=== PATIENT | female | born 1955 | race Caucasian/White ===

== ENCOUNTER → 2019-01-06 14:50 | Outpatient (CLI) | payer OTHER, SELFPAY ==
[2018-12-19 10:46] VITALS: BMI 42.3
--- NOTE | 2019-01-06 14:52 | ECHOCS_ITS ---
Reason For Study: CAD Procedure This was a 2D Doppler, Color Flow transthoracic echocardiogram. The study was technically difficult. Contrast injection was performed. Exam performed in department. Left Ventricle Normal LV size. Left ventricular systolic function is normal. The estimated ejection fraction is 65 %. Diastolic function is indeterminate. No regional wall motion abnormalities noted. Right Ventricle Normal RV size. Normal systolic function. Atria The left atrium is mildly enlarged. Normal right atrium. No doppler evidence for ASD. Mitral Valve There is no mitral annular calcification. Normal mitral valve. Trivial mitral valve insufficiency. Tricuspid Valve Normal tricuspid valve. Trivial tricuspid valve insufficiency. Unable to estimate RV systolic pressure/pulmonary artery pressure due to technically difficult study. Aortic Valve Based uopn the 2D echocardiographic images obtained a bicuspid aortic valve cannot be excluded. Pulmonic Valve The pulmonic valve is not well visualized. Mild (1+) pulmonic valve insufficiency. Great Vessels Mildly dilated aortic root. Pericardium/Pleural No pericardial effusion. Medication 22 gauge I.V. with prn adaptor inserted into right arm. Diluted definity 2ml given slow IV push to enhance endocardial definition. note: Following echo pt sat up and experienced vertigo type symptoms , which she has previously been diagnosed with. Dizziness and nausea did not resolve, therefore pt was taken to ED to be evaluated. This does not appear to be a reaction to Definity. MMode/2D Measurements & Calculations LVIDd: 4.3 cm IVSd: 0.96 cm Ao root diam: 4.0 cm LVIDs: 3.1 cm LVPWd: 0.98 cm FS: 28.7 % LAV(MOD-bp): 49.2 ml LVAd ap4: 35.4 cm2 SV(MOD-sp4): 89.6 ml LAV(MOD-bp) Indexed: 20.6 ml/m2 EDV(MOD-sp4): 130.4 ml LAV(MOD-sp2): 48.7 ml EDV(sp4-el): 138.9 ml LAV(MOD-sp4): 48.5 ml LVAs ap4: 17.2 cm2 ESV(MOD-sp4): 40.8 ml ESV(sp4-el): 43.3 ml EF(MOD-sp4): 68.7 % EF(sp4-el): 68.9 % SV(sp4-el): 95.7 ml LA A4 area: 18.5 cm2 LA dimension(2D): 3.9 cm RA A4 area: 12.7 cm2 Time Measurements MV dec time: 0.35 sec Doppler Measurements & Calculations MV E max yang: 60.9 cm/sec Lat Peak E' Yang: 9.3 cm/sec Med Peak E' Yang: 5.4 cm/sec MV A max yang: 108.8 cm/sec E/E' lat: 6.6 E/E' med: 11.4 MV E/A: 0.56 Ao V2 max: 133.0 cm/sec LV V1 max: 116.3 cm/sec PA V2 max: 103.8 cm/sec Ao max P.1 mmHg LV V1 max P.4 mmHg PI end-d yang: 137.9 cm/sec Interpretation Summary The study was technically difficult. Contrast injection was performed. Left ventricular systolic function is normal. The estimated ejection fraction is 65 %. The left atrium is mildly enlarged. Trivial mitral valve insufficiency. Trivial tricuspid valve insufficiency. Mild (1+) pulmonic valve insufficiency. Mildly dilated aortic root. Unable to estimate RV systolic pressure/pulmonary artery pressure due to technically difficult study. Diastolic function is indeterminate. Based uopn the 2D echocardiographic images obtained a bicuspid aortic valve cannot be excluded. Ordering Physician: Esau Cordoba Referring Physician: AMBER SOLO Performed By: Nithya Mazariegos, CAMELIA, RVT
== END ==
PROVIDERS: Family Provider Physician Assistant; PCP Physician Assistant; Referring Provider Internal Medicine Cardiovascular Disease; Visit Provider Internal Medicine Cardiovascular Disease
DX: I25.10 Atherosclerotic heart disease of native coronary artery without angina pectoris (principal); R01.1 Cardiac murmur, unspecified
CPT/HCPCS: 93306; Q9957; A4216; C8929

== ENCOUNTER 2019-01-06 17:30 | Emergency (ER) | payer OTHER, SELFPAY ==
[2018-12-19 10:46] VITALS: BMI 42.3
[2019-01-06 17:31] VITALS: BP 158/75; PULSE 68; RESP 16; TEMP 36.4; O2SAT 94; BMI 41.3
[2019-01-06 18:28] VITALS: BP 145/68; PULSE 72; RESP 16; O2SAT 95
--- NOTE | 2019-01-06 18:51 | EKG12_ITS ---
Test Reason : DIZZY Blood Pressure : / mmHG Vent. Rate : 067 BPM Atrial Rate : 067 BPM P-R Int : 148 ms QRS Dur : 080 ms QT Int : 532 ms P-R-T Axes : 029 -26 028 degrees QTc Int : 562 ms Sinus rhythm with marked sinus arrhythmia Nonspecific T wave abnormality Abnormal ECG Confirmed by BHAKTI ARGUETA, JEFFERY ([id number]), sound editor ELKE MAX ([id number]) on 01/09/2019 10:57:31 AM Referred By: Esau Cordoba Confirmed By:JEFFERY YA MD
--- NOTE | 2019-01-06 18:51 | CT_ITS ---
HISTORY: DURING ECHO TODAY AFTER INJECTION PATIENT HAD DIZZINESS AND NAUSEA TECHNIQUE: Multiple axial images were obtained of the brain without intravenous contrast. A radiation dose optimization technique was used for this scan. IV Contrast dosage and agent: None. COMPARISON: None FINDINGS: Normal ventricles. Mild cerebral cortical atrophy. No intracranial mass, hemorrhage, or acute parenchymal abnormality. Posterior fossa structures are unremarkable with the exception of vertebrobasilar atherosclerotic calcifications. Bilateral carotid calcifications, as well. No suspicious extra-axial fluid collection. The mastoids appear clear. As visualized, the paranasal sinuses are clear. CT/Brain/Head without Contrast IMPRESSION: 1. No hemorrhage or acute disease identified. 2. Carotid and vertebrobasilar atherosclerotic calcifications. Comment: If symptoms persist and remain unexplained, further correlation with MRI may be of benefit if the patient is a candidate. Individualized dose optimization techniques were used for this CT. at 1952 Reported and signed by: Tray Chaudhary MD Electronically Signed: Tray Chaudhary, at 19:51 EDT Tel , Service support ,
[2019-01-06] MEDS: LORazepam 2 MG/ML Syringe 1 MG IV (19:12)
[2019-01-06 19:24] LABS: Absolute Neutrophil Count 6.4 X10^3/uL (2.0-7.7); Basophil# 0.02 X10^3/uL; Basophil% 0.2 % (0-1); Eosinophil# 0.16 X10^3/uL; Eosinophils% 1.8 % (0-5); Hematocrit 48.1 % (37-47); Hemoglobin 15.5 g/dl (12.0-15.0); Lymphocyte % 21.5 % (19-41); Mean Corp Hgb Conc 32.2 g/gl (32-36); Mean Corpuscular Hgb 29.6 pg (27.0-32.0); Mean Corpuscular Volume 91.8 fL (81-99); Mean Platelet Vol. 11.5 fl (6.2-12.0); Monocyte# 0.34 X10^3/uL; Monocyte% 3.9 % (0-10); Neutrophil # 6.38 X10^3/uL (2.7-7.7); Neutrophil % 72.3 % (47-70); Platelet Count 146 K/mm3 (150-450); RBC Distribution Width CV 15.1 % (11.6-14.6); RBC Distribution Width SD 50.7 fl (35.1-43.9); Red Blood Count 5.24 M/mm3 (4.2-5.4); White Blood Count 8.8 K/mm3 (4.4-11.0)
[2019-01-06 19:35] LABS: POSITIVE COUNT NO; POSITIVE DIFFERENTIAL NO; POSITIVE MORPHOLOGY NO
[2019-01-06 19:40] LABS: International Normalized Ratio 1.1
[2019-01-06 19:41] LABS: Partial Thromboplast Time 27.9 Seconds (24.1-36.2)
[2019-01-06 19:45] LABS: Anion Gap 9 (5-15); BUN 23 mg/dL (7-18); BUN/Creat Ratio 25.8 RATIO (10-20); Calcium,Total 9.1 mg/dL (8.5-10.1); Chloride 102 mmol/L (98-107); Creatinine, Serum 0.89 mg/dL (0.55-1.02); EST Glomerular Filtration Rate 68 mL/min (>60); Est Glom Filt Rate - Afr Amer 82 mL/min (>60); Estimated Creatinine Clearance 66.74 ml/min; Glucose 175 mg/dL (74-106); Potassium 3.6 mmol/L (3.5-5.1); Sodium Level 137 mmol/L (136-145)
[2019-01-06 20:23] VITALS: BP 156/81; PULSE 72; RESP 16; O2SAT 89
--- NOTE | 2019-01-06 21:15 | ED.VISSUMM ---
- ER Visit Summary Date of Service: 01/06/19 Chief Complaint: Dizziness History of Present Illness: The patient is a 63 F with dizziness that started suddenly after a cardiac echo. The patient sat up and her symptoms started. She feels the room spinning. She is nauseated and vomited twice. No headache. No other neurologic symptoms. No history of stroke. No recent illness or fevers. No head trauma. Physical Examination: Afebrile and vital signs unremarkable. Patient is alert and oriented. Appears uncomfortable. No acute distress. HEENT exam unremarkable. Cranial nerves grossly intact. Normal strength and sensation. Heart regular. Lungs clear. Abdomen soft. Test Results: EKG showed sinus rhythm at a rate of 67. Hemoglobin 15.5 and platelets 146. Glucose 175 and BUN 23. Coags normal. Troponin normal. CT showed no acute findings. Emergency Department Course and Treatment: Patient presents with sudden vertigo. I suspect this is peripheral in etiology. She was treated with Ativan and had resolution of her symptoms. Patient will be discharged home on a course of meclizine and Ativan as needed. Follow-up with her doctor. Treatment Plan: As above Disposition: Discharge Impression: 1. Vertigo This note was generated with [employer] dictation software. It may contain incorrect words, spelling, and punctuation that were not noted in review of the chart prior to signing ED Disposition - Plan for ED Patient: Referrals: Seferino Argueta PA [Primary Care Provider] -
--- NOTE | 2019-01-06 21:17 | ED.DEP ---
ED Disposition - Plan for ED Patient: Instructions: ED Vertigo Unspecified Prescriptions: Lorazepam [Ativan] 1 mg PO TID PRN PRN 3 Days #9 tab PRN Reason: Vertigo Meclizine HCl 25 mg PO TID PRN PRN #20 tab.chew PRN Reason: Vertigo Referrals: Seferino Argueta PA [Primary Care Provider] -
[2019-01-06 21:53] VITALS: BP 131/73; PULSE 76; RESP 22; O2SAT 97
--- NOTE | 2019-01-06 21:54 | ED.RN ---
THIS NURSE REVIEWED D/C INSTRUCTIONS WITH PT AND FAMILY. PT VERBALIZED UNDERSTANDING OF INSTRUCTIONS. IV D/C. IV CATHETER INTACT. PT TOLERATED WELL.
== END 2019-01-06 21:55 | disposition home or self-care (01) ==
PROVIDERS: Emergency Provider Emergency Medicine; Family Provider Physician Assistant; PCP Physician Assistant
DX: R42 Dizziness and giddiness (principal); R11.2 Nausea with vomiting, unspecified; E11.9 Type 2 diabetes mellitus without complications; K21.9 Gastro-esophageal reflux disease without esophagitis; I10 Essential (primary) hypertension; E78.00 Pure hypercholesterolemia, unspecified; E03.9 Hypothyroidism, unspecified
CPT/HCPCS: 70450; 80048; 84484; 85025; 85610; 85730; 93005; 96374; 99284; A4216

== ENCOUNTER → 2019-01-21 13:12 | Outpatient (CLI) | payer OTHER, SELFPAY ==
[2019-01-06 17:31] VITALS: BMI 41.3
--- NOTE | 2019-01-21 13:13 | CT_ITS ---
STUDY: CT CHEST WITH CONTRAST REASON FOR EXAM: Female, 63 years old. Follow-up thoracic aortic aneurysm. Diabetes and hypertension. RADIATION DOSAGE (If Supplied By Facility): CTDIvol = ( 30.36 ) mGy, DLP = ( 812.56 ) mGycm TECHNIQUE: Transaxial imaging was performed following intravenous administration of 100ml IV Isovue 300. Individualized dose optimization techniques were used for this CT. COMPARISON: None. FINDINGS: The lungs are well expanded. There is a 4 mm calcified granuloma in the right upper lobe best seen on image 46 of series 1004. The lungs are otherwise clear. There is no demonstrated pleural abnormality. The heart is normal in size. Normal pericardium. There are calcifications of the coronary arteries. Normal mediastinum. Normal hilar regions. Normal enhanced pulmonary arteries. There is no evidence of thoracic aortic aneurysm. Maximum diameter of the aorta approximately 3.4 x 3.5 cm. There is mild atherosclerotic changes of the thoracic aorta without dissection. There are multi-level degenerative changes of the thoracic spine. Question sclerotic liver with mild splenomegaly. CT/Chest WITH Contrast IMPRESSION: 1. No visualized thoracic aortic aneurysm. 2. Calcified granuloma in the right upper lobe. Lungs are otherwise clear. 3. Atherosclerotic changes of the coronary arteries. 4. Degenerative changes of the thoracic spine. 5. Question cirrhotic liver with mild splenomegaly. Electronically Signed: Nigel Bass DO at 13:08 EDT Tel [phone], Service support ,
== END ==
PROVIDERS: Family Provider Physician Assistant; PCP Physician Assistant; Referring Provider Internal Medicine Cardiovascular Disease; Visit Provider Internal Medicine Cardiovascular Disease
DX: I77.810 Thoracic aortic ectasia (principal)
CPT/HCPCS: 71260; Q9967

== ENCOUNTER 2019-01-24 09:05 | Outpatient (CLI) | payer OTHER, SELFPAY ==
--- NOTE | 2019-01-24 09:06 | ECHOTEE_ITS ---
Reason For Study: Biscupid Aortic Valve Medication MARSHALL probe passed with minimal difficulty. No complications were noted. Cetacaine Topical [place] given X3 orally. Versed 1 mg given slow IVP. Fentanyl 50 mcg given slow IVP. Performed a rapid injection of agitated mix of 9 cc saline and 1cc air to assess for atrial septal defect. Left Ventricle Normal LV size. Sigmoid septum. Left ventricular systolic function is normal. The estimated ejection fraction is 60 %. No regional wall motion abnormalities noted. Right Ventricle Normal RV size. The right ventricular wall motion is normal. Atria No doppler evidence for ASD. Bubble contrast study negative for right to left interatrial shunt. The left atrium is mildly enlarged. There is no sponatenous contrast in the left atrium. No thrombus is detected in the left atrial appendage. Normal right atrium. There is no sponatenous contrast in the right atrium. No RA / appendage thrombus identified. Mitral Valve There is no mitral annular calcification. Mild diffuse mitral valve thickening. Trivial mitral valve insufficiency. Tricuspid Valve Normal tricuspid valve. Trivial tricuspid valve insufficiency. Aortic Valve Trisinus/trileaflet aortic valve. Normal aortic valve. Pulmonic Valve Normal pulmonic valve. Trivial eccentric pulmonic valve insufficiency. Vessels Normal appearing thoracic aorta. Pericardium No pericardial effusion. Interpretation Summary Left ventricular systolic function is normal. The estimated ejection fraction is 60 %. Sigmoid septum. The left atrium is mildly enlarged. There is no sponatenous contrast in the left atrium. No thrombus is detected in the left atrial appendage. Mild diffuse mitral valve thickening. Trivial mitral valve insufficiency. Trivial tricuspid valve insufficiency. Trisinus/trileaflet aortic valve. Trivial eccentric pulmonic valve insufficiency. Bubble contrast study negative for right to left interatrial shunt. Normal appearing thoracic aorta. Ordering Physician: Esau Cordoba Referring Physician: Seferino Argueta Performed By: Lynette Juarez, RDCS, RVT
== END 2019-01-24 12:15 | disposition home or self-care (01) ==
LOC: CVS 09:05
PROVIDERS: Family Provider Physician Assistant; PCP Physician Assistant; Referring Provider Internal Medicine Cardiovascular Disease; Visit Provider Internal Medicine Cardiovascular Disease
DX: Q23.1 Congenital insufficiency of aortic valve (principal)
CPT/HCPCS: 93312; 93320; 93325; J7040; A4216

== ENCOUNTER → 2019-02-11 07:56 | Outpatient (CLI) | payer OTHER, SELFPAY ==
--- NOTE | 2019-02-11 07:58 | US_ITS ---
STUDY: ABDOMINAL ULTRASOUND REASON FOR EXAM: Female, 63 years old. History of splenomegaly. Fatty liver. TECHNIQUE: Transabdominal ultrasound was performed with real-time and static cooper scale imaging. TECHNICAL QUALITY: Examination limited due to obesity. COMPARISON: CT of the chest, January 21, 2019. FINDINGS: Liver: The liver measures 21.8 cm. There is increased echogenicity consistent with fatty infiltration. There is a prominent left lateral caudate lobe suggestive of possible cirrhosis. The bile ducts are within normal limits. There is hepatic color flow. The direction of portal flow is hepatopetal. There is no demonstrated mass lesion. Portal vein measurement: 1.5 cm Gallbladder: The patient is status post cholecystectomy. Common Bile Duct (C.B.D.): The common bile duct measures 3.8 mm. Pancreas: Normal size of the head, body and tail of the pancreas. There is normal echogenicity of the pancreas. There is no demonstrated pancreatic mass or cyst. Spleen: There is splenomegaly. The spleen measures 14 cm. Right Kidney: Normal size of the right kidney. The right kidney measures 11.5 cm. Normal renal cortex. The right cortex measures 1.5 cm. There is no demonstrated renal mass or cyst. There is no right hydronephrosis. Left Kidney: Normal size of the left kidney. The left kidney measures 12.3 cm. Normal renal cortex. The left cortex measures 1.5 cm. There is no demonstrated renal mass or cyst. There is no left hydronephrosis. Aorta: Proximal aorta is obscured. The mid and distal aorta are unremarkable. I.V.C.: The IVC is patent. There is no ascites. US/Abdomen Complete IMPRESSION: 1. Enlarged cirrhotic appearing liver with steatosis. There is no visualized mass. The main portal vein measures 1.5 cm in diameter. 2. Splenomegaly. 3. Otherwise normal postcholecystectomy abdominal ultrasound. Electronically Signed: Nigel Bass DO at 16:52 EDT Tel [phone], Service support ,
== END ==
PROVIDERS: Family Provider Physician Assistant; PCP Physician Assistant; Referring Provider Physician Assistant; Visit Provider Physician Assistant
DX: R16.1 Splenomegaly, not elsewhere classified (principal); K74.1 Hepatic sclerosis; R74.0 Nonspecific elevation of levels of transaminase and lactic acid dehydrogenase [LDH]
CPT/HCPCS: 76700

== ENCOUNTER → 2019-06-03 07:44 | Outpatient (CLI) | payer OTHER, SELFPAY ==
[2019-06-03 09:05] LABS: International Normalized Ratio 1.1; Prothrombin Time (Protime)PT. 13.8 SECONDS (11.7-14.9)
[2019-06-03 09:36] LABS: ALB/GLOB Ratio 1.1 RATIO (0.9-2.4); AST(SGOT) 29 U/L (15-37); Alanine Aminotransfer ALT/SGPT 41 U/L (13-56); Albumin, Serum 3.9 g/dL (3.2-5.0); Alkaline Phosphatase 60 U/L (45-117); Anion Gap 8 (5-15); BUN 19 mg/dL (7-18); BUN/Creat Ratio 25.7 RATIO (10-20); Calcium,Total 9.4 mg/dL (8.5-10.1); Chloride 105 mmol/L (98-107); Creatinine, Serum 0.74 mg/dL (0.55-1.02); EST Glomerular Filtration Rate 84 mL/min (>60); Est Glom Filt Rate - Afr Amer 102 mL/min (>60); Ferritin 100 ng/mL (8-252); Globulin 3.6 g/dL (2.2-4.2); Glucose 145 mg/dL (74-106); Iron Binding Capacity,Total 270 ug/dL (250-450); Potassium 3.8 mmol/L (3.5-5.1); Protein, Total 7.5 g/dL (6.4-8.2); Sodium Level 143 mmol/L (136-145)
[2019-06-03 09:51] LABS: Hepatitis B Surface Antigen Non-Reactive (Nonreactive)
[2019-06-04 19:33] LABS: ANTINUCLEAR ANTIBODIES DIRECT Negative (Negative); Endomysial Antibody IgA Negative (Negative); HEPATITIS B SURFACE AG Negative (Negative); Hepatitis A AB, Total Negative (Negative); Hepatitis A IgM Antibody Negative (Negative); Hepatitis B Core AB IgM Negative (Negative); Hepatitis B Core Ab Total Negative (Negative); Hepatitis C Ab <0.1 s/co ratio (0.0-0.9); Immunoglobulin A 298 mg/dL (87-352)
[2019-06-05 08:19] LABS: AFP, Tumor Marker 2.9 ng/mL (0.0-8.3); Alpha Antitrypsin Serum 115 mg/dL (90-200); Anti-Mitochondrial AB <20.0 Units (0.0-20.0); Ceruloplasmin 23.2 mg/dL (19.0-39.0); Deamidated Gliadin IgA 10 units (0-19); Deamidated Gliadin IgG 8 units (0-19); Hep B Surface Antibodies Non Reactive (.); t-Transglutaminase IgA <2 U/mL (0-3)
== END ==
PROVIDERS: Family Provider Physician Assistant; PCP Physician Assistant; Referring Provider Internal Medicine Gastroenterology; Visit Provider Internal Medicine Gastroenterology
DX: K74.69 Other cirrhosis of liver (principal)
CPT/HCPCS: 36415; 80053; 82103; 82105; 82390; 82728; 82784; 83516; 83550; 85610; 86038; 86255; 86704; 86705; 86706; 86708; 86709; 86803; 87340

== ENCOUNTER → 2019-07-02 07:53 | Outpatient (CLI) | payer OTHER, SELFPAY ==
[2019-06-20 14:58] VITALS: BMI 39.7
--- NOTE | 2019-07-02 07:56 | CDU_ITS ---
Reason For Study: bruit Rt. Velocities/BP Lt. Velocities/BP Prox CCA 93.0/14.7 cm/sec. Prox CCA 91.6/17.9 cm/sec. Mid CCA 82.5/17.3 cm/sec. Mid CCA 81.6/16.8 cm/sec. Dist CCA 69.5/18.6 cm/sec. Dist CCA 81.7/17.9 cm/sec. Prox ICA 48.6/13.4 cm/sec. Prox ICA 31.5/9.7 cm/sec. Mid ICA 51.2/17.3 cm/sec. Mid ICA 56.0/22.0 cm/sec. Dist ICA 78.6/23.9 cm/sec. Dist ICA 56.6/20.1 cm/sec. Rt. ICA/CCA = 1.0. Lt. ICA/CCA = .7. Prox ECA 93.0/6.9 cm/sec. Prox ECA 75.1/8.0 cm/sec. Rt. Vert. 35.2/7.8 cm/sec. Lt. Vert. 31.5/11.6 cm/sec. Right Extracranial There is intimal thickening but no significant atherosclerotic plaque noted in the right common carotid artery. There is heterogeneous, irregular atherosclerotic plaque noted in the right internal carotid artery. There is intimal thickening but no significant atherosclerotic plaque noted in the right external carotid artery. Antegrade flow is noted in the right vertebral artery. Left Extracranial There is intimal thickening but no significant atherosclerotic plaque noted in the left common carotid artery. There is heterogeneous, smooth atherosclerotic plaque noted in the left internal carotid artery. There is intimal thickening but no significant atherosclerotic plaque noted in the left external carotid artery. Antegrade flow is noted in the left vertebral artery. Procedure Carotid Duplex [id number]. The exam was diagnostic. Exam performed in department. 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 <50% stenosis left external carotid Patent and antegrade vertebrals bilaterally (<50% stenosis) Ordering Physician: Delia Garsia Performed By: Yaya Hilliard RVT
== END ==
PROVIDERS: Family Provider Physician Assistant; PCP Physician Assistant; Referring Provider Physician Assistant Medical; Visit Provider Physician Assistant Medical
DX: R09.89 Other specified symptoms and signs involving the circulatory and respiratory systems (principal); E78.2 Mixed hyperlipidemia; I10 Essential (primary) hypertension
CPT/HCPCS: 93880

== ENCOUNTER → 2019-10-06 08:59 | Outpatient (CLI) | payer OTHER, SELFPAY ==
[2019-06-20 14:58] VITALS: BMI 39.7
--- NOTE | 2019-10-06 09:03 | US_ITS ---
STUDY: ABDOMINAL ULTRASOUND - RIGHT UPPER QUADRANT REASON FOR VISIT: Female, 63 years old. Cirrhosis. TECHNIQUE: Ultrasound evaluation of the right upper quadrant was performed with real-time and static cooper-scale imaging. TECHNICAL QUALITY: Examination limited due to obesity. COMPARISON: Abdominal ultrasound, February 11, 2019. FINDINGS: Liver: The liver measures 24.1 cm. Nodular surface. Prominence left lateral caudate lobe consistent with cirrhosis. There is normal echogenicity of the liver. The bile ducts are within normal limits. There is hepatic color flow. The direction of portal flow is hepatopetal. There is no demonstrated mass lesion. Gallbladder: The patient is status post cholecystectomy. Common Bile Duct (C.B.D.): The common bile duct measures 5 mm. Pancreas: Normal size of the head, body and tail of the pancreas. There is normal echogenicity of the pancreas. There is no demonstrated pancreatic mass or cyst. Right Kidney: Normal size of the right kidney. The right kidney measures 12.3 cm. Normal renal cortex. The right cortex measures 1.5 cm. There is no demonstrated renal mass or cyst. There is no right hydronephrosis. US/Abdomen Limited IMPRESSION: 1. Prominent cirrhotic appearing liver. 2. Otherwise normal postcholecystectomy right upper quadrant ultrasound. Electronically Signed: Nigel Bass DO at 17:07 EST Tel [phone], Service support ,
== END ==
PROVIDERS: Family Provider Physician Assistant; PCP Physician Assistant; Referring Provider Internal Medicine Gastroenterology; Visit Provider Internal Medicine Gastroenterology
DX: K74.69 Other cirrhosis of liver (principal)
CPT/HCPCS: 76705

== ENCOUNTER → 2020-09-06 07:48 | Outpatient (CLI) | payer MEDICARE, OTHER, SELFPAY ==
[2020-08-18 13:24] VITALS: BMI 40.5
--- NOTE | 2020-09-06 07:49 | ECHOCS_ITS ---
Reason For Study: Aortic Root Dilatation Procedure This was a 2D Doppler, Color Flow transthoracic echocardiogram. The study was technically difficult. Contrast injection was performed. Exam performed in department. Left Ventricle Normal LV size. Left ventricular systolic function is normal. The estimated ejection fraction is 65 %. No evidence for diastolic dysfunction. No regional wall motion abnormalities noted. Right Ventricle Normal RV size. Normal systolic function. Atria The left atrium is mildly enlarged. Normal right atrium. No doppler evidence for ASD. Mitral Valve There is no mitral annular calcification. Normal mitral valve. Trivial mitral valve insufficiency. Tricuspid Valve Normal tricuspid valve. Trivial tricuspid valve insufficiency. Unable to estimate RV systolic pressure/pulmonary artery pressure due to technically difficult study. Aortic Valve Trisinus/trileaflet aortic valve. Mild focal aortic valve thickening. Pulmonic Valve The pulmonic valve is not well visualized. Trivial pulmonic valve insufficiency. Great Vessels Normal sized aortic root. Comment: The ascending aorta is not as well visualized. Consider further evaluation of thoracic aortic size/anatomy with chest CT scan with IV contrast if clinically indicated. Pericardium/Pleural No pericardial effusion. Medication 22 gauge I.V. with prn adaptor inserted into right arm. Diluted definity 3ml given slow IV push to enhance endocardial definition. MMode/2D Measurements & Calculations RVDd: 3.3 cm Ao root diam: 3.1 cm LAV(MOD-bp): 77.2 ml LAV(MOD-bp) Indexed: 32.9 ml/m2 LAV(MOD-sp2): 93.8 ml LAV(MOD-sp4): 62.3 ml LA A4 area: 21.6 cm2 RA A4 area: 13.3 cm2 Time Measurements MV dec time: 0.27 sec Doppler Measurements & Calculations MV E max yang: 82.0 cm/sec Lat Peak E' Yang: 10.8 cm/sec Med Peak E' Yang: 6.9 cm/sec MV A max yang: 86.0 cm/sec E/E' lat: 7.6 E/E' med: 11.9 MV E/A: 0.95 MV V2 max: 99.2 cm/sec MV P1/2t max yang: 91.5 cm/sec Ao V2 max: 120.0 cm/sec MV max P.9 mmHg MV P1/2t: 107.0 msec Ao max P.8 mmHg MV V2 mean: 57.5 cm/sec MV mean P.5 mmHg MV dec slope: 250.4 cm/sec2 MV V2 VTI: 31.7 cm MVA(P1/2t): 2.1 cm2 LV V1 max: 114.3 cm/sec PA V2 max: 95.3 cm/sec PI dec slope: 108.0 cm/sec2 LV V1 max P.2 mmHg Interpretation Summary The study was technically difficult. Contrast injection was performed. Left ventricular systolic function is normal. The estimated ejection fraction is 65 %. The left atrium is mildly enlarged. Trivial mitral valve insufficiency. Trivial tricuspid valve insufficiency. Mild focal aortic valve thickening. Trivial pulmonic valve insufficiency. Unable to estimate RV systolic pressure/pulmonary artery pressure due to technically difficult study. No evidence for diastolic dysfunction. Normal sized aortic root. Comment: The ascending aorta is not as well visualized. Consider further evaluation of thoracic aortic size/anatomy with chest CT scan with IV contrast if clinically indicated. Ordering Physician: Esau Cordoba Referring Physician: Esau Cordoba Performed By: Maxwell Ortega RCS
== END ==
PROVIDERS: PCP Physician Assistant; Referring Provider Internal Medicine Cardiovascular Disease; Visit Provider Internal Medicine Cardiovascular Disease
DX: R07.9 Chest pain, unspecified (principal)
CPT/HCPCS: 93306; Q9957; A4216; C8929

== ENCOUNTER → 2020-09-13 15:40 | Outpatient (CLI) | payer MEDICARE, OTHER, SELFPAY ==
[2020-08-18 13:24] VITALS: BMI 40.5
--- NOTE | 2020-09-13 15:41 | CT_ITS ---
STUDY: CT CHEST WITH CONTRAST REASON FOR EXAM: Female, 64 years old. FOLLOW UP AORTIC ROOT DIALTATION -- HX-UTERINE CA ,DIAB,HTN -- SURG-HYST,GB,HERNIA X2 RADIATION DOSAGE (If Supplied By Facility): CTDIvol = ( 17.42 ) mGy, DLP = ( 639.67 ) mGycm TECHNIQUE: Transaxial imaging was performed following intravenous administration of IV 100mL Isovue-370. Individualized dose optimization techniques were used for this CT. COMPARISON: 01/21/2019 FINDINGS: The lungs are normal. There is no demonstrated pleural abnormality. Normal heart and pericardium. There are calcifications of the coronary arteries. Normal mediastinum. Normal hilar regions. Normal enhanced pulmonary arteries. Normal aorta arch and descending thoracic aorta. Normal osseous structures. There is no demonstrated abnormality of the visualized upper abdomen. CT/Chest WITH Contrast IMPRESSION: Normal enhanced CT Chest examination. No thoracic aortic aneurysm. Electronically Signed: Saleem Sharpe MD at 16:21 EST Tel , Service support ,
[2020-09-13 16:01] LABS: CREATININE FINGERSTICK 0.7 mg/dL (0.55-1.02)
== END ==
PROVIDERS: PCP Physician Assistant; Referring Provider Internal Medicine Cardiovascular Disease; Visit Provider Internal Medicine Cardiovascular Disease
DX: I77.810 Thoracic aortic ectasia (principal)
CPT/HCPCS: 71260; Q9967

== ENCOUNTER → 2020-12-08 07:37 | Outpatient (CLI) | payer MEDICARE, OTHER, SELFPAY ==
[2020-08-18 13:24] VITALS: BMI 40.5
--- NOTE | 2020-12-08 07:46 | US_ITS ---
STUDY: ABDOMINAL ULTRASOUND - RIGHT UPPER QUADRANT REASON FOR VISIT: Female, 64 years old HX OF [place]CC[place]. HX OF CHOLECYSTECTOMY TECHNIQUE: Ultrasound evaluation of the right upper quadrant was performed with real-time and static cooper-scale imaging. TECHNICAL QUALITY: Adequate. COMPARISON: Comparison is made with prior study dated 10/06/2019. FINDINGS: Liver: The liver measures 15.9 cm. Once again, there is evidence of prominence of the caudate lobe. There is increased echogenicity consistent with fatty infiltration. The bile ducts are within normal limits. There is hepatic color flow. The direction of portal flow is hepatopetal. There is no demonstrated mass lesion. Gallbladder: The patient is status post cholecystectomy. Common Bile Duct (C.B.D.): The common bile duct measures 6 mm. Pancreas: Normal size of the head, body and tail of the pancreas. There is normal echogenicity of the pancreas. There is no demonstrated pancreatic mass or cyst. Right Kidney: Normal size of the right kidney. The right kidney measures 12.2 cm x 5.2cm x 5.1 cm. Normal renal cortex. The right cortex measures 1.3 cm. There is no demonstrated renal mass or cyst. There is no right hydronephrosis. US/Liver IMPRESSION: Fatty infiltration of the liver Stable enlargement of the caudate lobe. Electronically Signed: Ed Cristobal MD at 10:29 EST , Service support ,
[2020-12-09 09:33] LABS: AFP, Tumor Marker 3.1 ng/mL (0.0-8.3)
== END ==
PROVIDERS: PCP Physician Assistant; Referring Provider Internal Medicine Gastroenterology; Visit Provider Internal Medicine Gastroenterology
DX: R93.3 Abnormal findings on diagnostic imaging of other parts of digestive tract (principal); K74.69 Other cirrhosis of liver
CPT/HCPCS: 36415; 76705; 82105

== ENCOUNTER 2021-05-09 12:09 | Emergency (ER) | payer MEDICARE, OTHER, SELFPAY ==
[2020-08-18 13:24] VITALS: BMI 40.5
[2021-05-09 12:11] VITALS: BP 153/87; PULSE 70; RESP 18; TEMP 36; O2SAT 94; BMI 40.1
--- NOTE | 2021-05-09 12:39 | EKG12_ITS ---
Test Reason : CHEST PAIN Blood Pressure : / mmHG Vent. Rate : 069 BPM Atrial Rate : 069 BPM P-R Int : 106 ms QRS Dur : 074 ms QT Int : 440 ms P-R-T Axes : 007 -34 030 degrees QTc Int : 471 ms Sinus rhythm with short [place] Left axis deviation Low voltage QRS Poor R wave progression Abnormal ECG Confirmed by MARYAN ARGUETA, SIMONA ([id number]), editor farm journal ELKE MAX ([id number]) on 05/11/2021 9:26:11 AM Referred By: JOCELYN Confirmed By:SIMONA STEINBERG MD
[2021-05-09 13:01] VITALS: O2SAT 97
--- NOTE | 2021-05-09 13:09 | ED.VIS.CHEST ---
HPI History of Present Illness Chief Complaint: Chest Pain Detail of Chief Complaint: After eating spicy food 4 to 5 days ago. Informant: patient Onset/Context/Timing Onset: Days Activity at onset: gradual Timing: Intermittent Quality: Positive for Indigestion Current Severity: Mild Maximum Severity: Mild Worsened By: Movement of Torso Relieved By: Antacids Associated Symptoms: Positive for Acid Reflux; Negative for Nausea, Vomiting, Diaphoresis, Dyspnea, Cough, Fever and Lightheadedness Narrative Narrative: 65-year-old female with extensive past medical history including hypertension, diabetes no prior cardiac disease. Negative cardiac cath about 20 years ago. Patient states 4 to 5 days ago a really spicy food since that time she had intermittent epigastric pain. She attributed to reflux. Since hurts when she bends over. Not associated with exertion. No dyspnea. No hemoptysis. Never had a DVT or PE. No recent travel surgery or immobilization. No calf pain or swelling. Prior Similar Symptoms: Yes Recent Illness/Hospitalization: No CVD Risk Factors: Positive for Hypertension, Diabetes and Hypercholesterolemia; Negative for Smoking PE Risk Factors: Negative for Recent Travel/Surgery, Recent Immobilization, Prior DVT or PE, Cancer and OCP + Smoking + >/=35 TAD Risk Factors: Negative for Marfan's Syndrome and Hypertension [facility] Medical History Celiac disease Chest pain Cirrhosis Essential hypertension GERD (gastroesophageal reflux disease) Hypothyroidism Mixed hyperlipidemia [place] (nonalcoholic steatohepatitis) Type 2 diabetes mellitus Home Medications atorvastatin 20 mg tablet 20 mg PO DAILY 12/02/18 [History Last Taken Unknown] lisinopril 20 mg-hydrochlorothiazide 25 mg tablet 1 tab PO DAILY 12/02/18 [History Last Taken Unknown] meclizine 25 mg PO TID PRN PRN #20 tab.chew 01/06/19 [Rx Last Taken Unknown] omeprazole 20 mg capsule,delayed release 20 mg PO DAILY 06/20/19 [History Last Taken Unknown] dicyclomine 10 mg capsule 10 mg PO Q6H cap 08/18/20 [History Last Taken Unknown] empagliflozin 5 mg-metformin 1,000 mg tablet 2 tab PO DAILY tab 08/18/20 [History Last Taken Unknown] levothyroxine 125 mcg tablet 125 mcg PO DAILY 08/18/20 [History Last Taken Unknown] oxybutynin chloride 10 mg tablet,extended release 24 hr 10 mg PO DAILY 08/18/20 [History Last Taken Unknown] Allergy/AdvReac Type Severity Reaction Status Date / Time Latex, Natural Rubber Allergy Severe Rash Verified 05/09/21 12:12 codeine AdvReac Unknown Unknown Verified 05/09/21 12:12 wheat AdvReac Other Verified 05/09/21 12:12 Family History Father History of coronary artery bypass surgery CAD (coronary artery disease) Surgical History History of section History of cholecystectomy History of inguinal hernia repair History of total hysterectomy Social History Smoking Status: Never smoker alcohol intake: never substance use type: does not use ROS ROS ED ROS Narrative Patient denies recent illness. Review of Systems ROS Unobtainable: Denies due to encephalopathy Constitutional Constitutional ED: Denies chills or fever(s) Eyes Eyes: Denies none ENT ENT ED: Denies ear pain or sore throat Cardiovascular Cardiovascular: Reports as per HPI and chest pain; Denies palpitations or racing heartbeat Respiratory/Chest Respiratory/Chest: Denies cough, dyspnea, dyspnea on exertion or sputum Gastrointestinal Gastrointestinal: Denies abdominal pain, diarrhea, nausea or vomiting Genitourinary Genitourinary ED: Denies dysuria or hematuria Musculoskeletal Musculoskeletal: Denies arthralgias or myalgias Integumentary Denies rash Neurologic Neurologic: Denies headache(s) Psychiatric Psychiatric: Denies depression Endocrine Endocrinology: Denies polyuria Hematologic/Lymphatic Hematologic/Lymphatic: Denies easy bruising Allergic/Immunologic Allergic/Immunologic ED: Denies urticaria EXAM Physical Exam Narrative Exam Narrative: Older female no acute distress. Vital signs stable afebrile. Pulse ox 94% on room air no signs hypoxia. Const Vital Signs: 05/09/21 12:11 05/09/21 13:01 05/09/21 14:28 Temperature 96.8 F L Temperature Source Temporal Pulse Rate 70 66 Respiratory Rate 18 16 Blood Pressure 153/87 H 121/64 H Blood Pressure Mean 109 83 Pulse Ox 94 97 95 Oxygen Delivery Method Room Air Room Air Room Air Positive well nourished, well developed and obese; Negative for cachectic, contractures or unkempt General Appearance ED: well developed; Negative for unkempt, cachectic or contractures Nutritional Appearance: obese; Negative for cachectic HEENT Reports moist mucous membranes normocephalic and atraumatic; Negative for trauma or tenderness Eyes PERRL and EOMs intact bilaterally Neck no lymphadenopathy, supple and no JVD General: Negative for tenderness Chest Wall inspection of chest normal and palpation of chest normal Chest: Negative for tenderness Resp normal respiratory effort and clear to auscultation bilaterally Effort and Inspection: Negative for respiratory distress Auscultation: Negative for rales, rhonchi or wheezes Cardio regular rate, regular rhythm, S1 normal heart sound, S2 normal heart sound and no murmurs Rate: Negative for bradycardia or tachycardic GI normal to inspection, nondistended, normoactive bowel sounds, soft to palpation, non-tender and non-distended Back/Spine no CVA tenderness and no thoracic nor lumbar tenderness General Back: Negative for CVA tenderness Extremity normal to inspection General Extremety ED: Negative for edema or tenderness General Extremity: Negative for edema Neuro oriented x3 and CN's II-XII intact bilaterally Sensorium / Orientation: awake, alert, oriented to person, oriented to place and oriented to time Motor Exam: strength 5/5 throughout Psych mental status grossly normal Appearance: Negative for unkempt Skin no rashes or lesions noted and no wounds Heart Score History: Slightly/Non-Suspicious ECG: Normal Age: >/= 65 years Risk Factors: 1 or 2 Risk Factors Troponin: </= Normal Limit Score: 3 MDM MDM MDM Narrative Medical decision making narrative: 65-year-old female with atypical nonexertional chest pain. Clinically this sounds like reflux. But she will undergo cardiac work-up. Her initial EKG is unremarkable. Repeat exam at 4:27 PM patient is doing well. We went over all of her test results. She will be discharged to home. Lab Data Attestation: I reviewed the patient's lab results. Lab results narrative: CBC normal. White count of 5. Hemoglobin 14. Electrolytes unremarkable gap of 6. Normal creatinine. Normal high-sensitivity troponin. Labs: Laboratory Results - last 24 hr 05/09/21 05/09/21 13:10 13:10 WBC 5.8 RBC 4.77 Hgb 14.4 Hct 43.6 MCV 91.4 MCH 30.2 MCHC 33.0 RDW Std Deviation 47.5 H RDW Coeff of Ifrah 14.2 Plt Count 153 MPV 11.1 Immature Gran % (Auto) 0.300 Neut % (Auto) 54.8 Lymph % (Auto) 29.3 [place] % (Auto) 10.4 H Eos % (Auto) 4.5 Baso % (Auto) 0.7 Absolute Neuts (auto) 3.2 Absolute Lymphs (auto) 1.71 Nucleated RBC % 0 Sodium 139 Potassium 3.7 Chloride 104 Carbon Dioxide 29.0 Anion Gap 6 BUN 21 H Creatinine 0.68 Estim Creat Clear Calc 57.83 Est GFR (MDRD) Af Amer 110 Est GFR (MDRD) Non-Af 91 BUN/Creatinine Ratio 30.7 H Glucose 133 H Calcium 9.2 Troponin I High Sens 6.0 Radiography Chest X-Ray - ED: 1 View, Read by ED Physician, Read by Radiologist, Normal, Heart, Lungs, Mediastinum, Bony Structures, No Acute Disease and Chronic Changes Diagnostic Testing: Radiology Impression Chest X-Ray 05/09/21 13:43 IMPRESSION: No radiographic evidence of acute cardiopulmonary disease. at 1405 Reported and signed by: Jg Hinson MD Electronically Signed: Jg Hinson MD at 14:04 EDT Tel , Service support , Rhythm Strip Rhythm Strip: Sinus Rhythm Rate: 69 Ectopy: None EKG Initial EKG: Attestation: I personally reviewed and interpreted this EKG as follows: Interpretation: Sinus Rhythm and No Acute Injury Pattern Comments: Normal sinus rhythm rate of 69. No acute signs of [place] nor ischemia. Prior EKG tracings: not available for review Discharge Plan Triage Chief Complaint: Chest Pain ED Provider: Raffy Law Dx/Rx/DC Orders Clinical Impression: Chest pain Instructions: ED Chest Pain, Noncardiac Prescriptions: No Action atorvastatin 20 mg tablet 20 mg PO DAILY RF: 0 lisinopril-hydrochlorothiazide 20-25 mg tablet 1 tab PO DAILY RF: 0 Synjardy 5-1,000 mg tablet 2 tab PO DAILY RF: 0 omeprazole 20 mg capsule,delayed release(DR/EC) 20 mg PO DAILY RF: 0 dicyclomine 10 mg capsule 10 mg PO Q6H RF: 0 levothyroxine 125 mcg tablet 125 mcg PO DAILY RF: 0 oxybutynin chloride [Ditropan XL] 10 mg tablet extended release 24hr 10 mg PO DAILY RF: 0 meclizine 25 MG tablet,chewable 25 mg PO TID PRN PRN (Reason: Vertigo) Qty: 20 RF: 0 Primary Care Provider: Seferino Argueta Referrals: Seferino Argueta PA [Primary Care Provider] - 3-5 Days if not improving Activity Restrictions/Additional Instructions: Follow-up with your doctors as needed. May increase your omeprazole to twice a day for the next several days this may be GI related secondary to the spicy food. Return to emergency department if you are feeling worse. Your EKG, chest x-ray and labs today were unremarkable. Disposition Disposition: Home, Self Care
[2021-05-09 13:16] LABS: Absolute Lymphocyte Count 1.71 X10^3/uL (0.83-4.51); Absolute Neutrophil Count 3.2 X10^3/uL (2.0-7.7); Basophil# 0.04 X10^3/uL; Basophil% 0.7 % (0-1); Eosinophil# 0.26 X10^3/uL; Eosinophils% 4.5 % (0-5); Hematocrit 43.6 % (37-47); Hemoglobin 14.4 g/dL (12.0-15.0); Lymphocyte # 1.71 X10^3/ul (0.83-4.51); Lymphocyte % 29.3 % (19-41); Mean Corpuscular Hgb 30.2 pg (27.0-32.0); Mean Corpuscular Volume 91.4 fL (81-99); Mean Platelet Vol. 11.1 fl (6.2-12.0); Monocyte# 0.61 X10^3/uL; Monocyte% 10.4 % (0-10); NRBC Flagged by Analyzer 0 % (0-5); Neutrophil % 54.8 % (47-70); Platelet Count 153 K/mm3 (150-450); RBC Distribution Width CV 14.2 % (11.6-14.6); RBC Distribution Width SD 47.5 fl (35.1-43.9); Red Blood Count 4.77 M/mm3 (4.2-5.4); White Blood Count 5.8 K/mm3 (4.4-11.0)
[2021-05-09 13:34] LABS: Anion Gap 6 (5-15); BUN 21 mg/dL (7-18); BUN/Creat Ratio 30.7 RATIO (10-20); Calcium,Total 9.2 mg/dL (8.5-10.1); Chloride 104 mmol/L (98-107); Creatinine, Serum 0.68 mg/dL (0.55-1.02); EST Glomerular Filtration Rate 91 mL/min (>60); Est Glom Filt Rate - Afr Amer 110 mL/min (>60); Estimated Creatinine Clearance 57.83 ml/min; Glucose 133 mg/dL (74-106); Potassium 3.7 mmol/L (3.5-5.1); Sodium Level 139 mmol/L (136-145)
--- NOTE | 2021-05-09 13:43 | RAD_ITS ---
EXAM: XR CHEST, 1 VIEW : 1955 CLINICAL INDICATION: chest pain TECHNIQUE: Frontal view of the chest. This report was created using [employer] report generation technology. COMPARISON: None. FINDINGS: LUNGS AND PLEURAL SPACES: Unremarkable. No consolidation or edema. No pneumothorax. No effusion. HEART: Unremarkable. Cardiac silhouette not enlarged. MEDIASTINUM: Central airways and mediastinal contour are unremarkable. BONES/JOINTS: Unremarkable. SOFT TISSUES: Unremarkable. RAD/Chest 1 View (Portable) IMPRESSION: No radiographic evidence of acute cardiopulmonary disease. at 1405 Reported and signed by: Jg Hinson MD Electronically Signed: Jg Hinson MD at 14:04 EDT Tel , Service support ,
[2021-05-09 14:28] VITALS: BP 121/64; PULSE 66; RESP 16; O2SAT 95
[2021-05-09 16:46] VITALS: BP 119/67; PULSE 73; RESP 16; O2SAT 98
== END 2021-05-09 16:47 | disposition home or self-care (01) ==
PROVIDERS: Emergency Provider Emergency Medicine; PCP Physician Assistant
DX: R07.89 Other chest pain (principal); I10 Essential (primary) hypertension; E66.9 Obesity, unspecified; Z68.41 Body mass index [BMI] 40.0-44.9, adult; E03.9 Hypothyroidism, unspecified; E11.9 Type 2 diabetes mellitus without complications; E78.2 Mixed hyperlipidemia; K90.0 Celiac disease; K21.9 Gastro-esophageal reflux disease without esophagitis; K75.81 Nonalcoholic steatohepatitis (NASH); K74.60 Unspecified cirrhosis of liver; Z79.84 Long term (current) use of oral hypoglycemic drugs; Z79.899 Other long term (current) drug therapy
CPT/HCPCS: 71045; 80048; 84484; 85025; 93005; 99284; A4216

== ENCOUNTER → 2021-06-01 08:18 | Outpatient (CLI) | payer MEDICARE, OTHER, SELFPAY ==
[2021-05-09 12:11] VITALS: BMI 40.1
--- NOTE | 2021-06-01 08:38 | US_ITS ---
STUDY: ABDOMINAL ULTRASOUND - RIGHT UPPER QUADRANT REASON FOR VISIT: Female, 65 years old CIRRHOSIS TECHNIQUE: Ultrasound evaluation of the right upper quadrant was performed with real-time and static cooper-scale imaging. TECHNICAL QUALITY: Adequate. COMPARISON: 12/08/2020 FINDINGS: Liver: The liver measures 21.7 cm. There is a heterogeneous echogenicity of the liver. The bile ducts are within normal limits. There is hepatic color flow. The direction of portal flow is hepatopetal. There is no demonstrated mass lesion. Gallbladder: The patient is status post cholecystectomy.. Common Bile Duct (C.B.D.): The common bile duct measures 3 mm. Pancreas: Normal size of the head, body and tail of the pancreas. There is normal echogenicity of the pancreas. There is no demonstrated pancreatic mass or cyst. Right Kidney: Normal size of the right kidney. The right kidney measures 12.6 cm. Normal renal cortex. The right cortex measures 1.3 cm. 1.8 cm cyst in the midsection of the right kidney. There is no right hydronephrosis. US/Abdomen Limited IMPRESSION: Heterogeneous echotexture of the liver worrisome for cirrhosis. CT may be useful. Electronically Signed: Saleem Sharpe MD at 10:12 EDT Tel , Service support ,
[2021-06-02 14:09] LABS: Endomysial Antibody IgA Negative (Negative); Immunoglobulin A 291 mg/dL (87-352)
[2021-06-02 16:40] LABS: AFP, Tumor Marker 2.5 ng/mL (0.0-8.3); t-Transglutaminase IgA <2 U/mL (0-3)
== END ==
PROVIDERS: PCP Physician Assistant; Referring Provider Internal Medicine Gastroenterology; Visit Provider Internal Medicine Gastroenterology
DX: K74.69 Other cirrhosis of liver (principal); R93.3 Abnormal findings on diagnostic imaging of other parts of digestive tract
CPT/HCPCS: 36415; 76705; 82105; 82784; 83516; 86255

== ENCOUNTER 2021-12-14 07:56 | Outpatient (CLI) | payer MEDICARE, OTHER, SELFPAY ==
--- NOTE | 2021-12-14 08:03 | US_ITS ---
STUDY: ABDOMINAL ULTRASOUND - RIGHT UPPER QUADRANT REASON FOR VISIT: Female, 65 years old CIRRHOSIS TECHNIQUE: Ultrasound evaluation of the right upper quadrant was performed with real-time and static cooper-scale imaging. TECHNICAL QUALITY: Adequate. COMPARISON: Comparison is made with prior ultrasound examination dated 06/01/2021. FINDINGS: Liver: The liver is enlarged and measures 23 cm. There is increased echogenicity consistent with fatty infiltration. The bile ducts are within normal limits. There is hepatic color flow. The direction of portal flow is hepatopetal. There is no demonstrated mass lesion. Gallbladder: The patient is status post cholecystectomy. Common Bile Duct (C.B.D.): The common bile duct measures 4.5 mm. Pancreas: Normal size of the head, body and tail of the pancreas. There is normal echogenicity of the pancreas. There is no demonstrated pancreatic mass or cyst. Right Kidney: Normal size of the right kidney. The right kidney measures 12.5 cm x 5.2 cm x 6.1 cm. Normal renal cortex. The right cortex measures 2.1 cm. There is no demonstrated renal mass or cyst. There is no right hydronephrosis. US/Liver IMPRESSION: Hepatomegaly and fatty infiltration of the liver. Electronically Signed: Ed Cristobal MD at 9:56 EST ,
== END 2021-12-14 23:59 | disposition home or self-care (01) ==
LOC: US 08:01
PROVIDERS: PCP Physician Assistant; Referring Provider Internal Medicine Gastroenterology; Visit Provider Internal Medicine Gastroenterology
DX: K74.69 Other cirrhosis of liver (principal)
CPT/HCPCS: 76705

== ENCOUNTER 2021-12-15 07:36 | Outpatient (CLI) | payer MEDICARE, OTHER, SELFPAY ==
[2021-12-16 08:07] LABS: AFP, Tumor Marker 2.8 ng/mL (0.0-8.3)
== END 2021-12-15 23:59 | disposition home or self-care (01) ==
LOC: LAB 07:38
PROVIDERS: PCP Physician Assistant; Referring Provider Internal Medicine Gastroenterology; Visit Provider Internal Medicine Gastroenterology
DX: K74.69 Other cirrhosis of liver (principal)
CPT/HCPCS: 36415; 82105

== ENCOUNTER → 2022-06-13 | Outpatient (CLI) | payer MEDICARE, OTHER, SELFPAY ==
--- NOTE | 2022-06-13 07:53 | US_ITS ---
STUDY: ABDOMINAL ULTRASOUND - RIGHT UPPER QUADRANT REASON FOR VISIT: Female, 66 years old CIRRHOSIS OF LIVER TECHNIQUE: Ultrasound evaluation of the right upper quadrant was performed with real-time and static cooper-scale imaging. TECHNICAL QUALITY: Adequate. COMPARISON: None. FINDINGS: Liver: The liver measures 15.9 cm. There is increased heterogeneous echogenicity of the liver. The bile ducts are within normal limits. There is hepatic color flow. The direction of portal flow is hepatopetal. There is no demonstrated mass lesion. Gallbladder: Normal distended gallbladder. The gallbladder wall is unremarkable. There is a negative sonographic Joiner''s sign. There is no pericholecystic fluid. There are no gallstones. Common Bile Duct (C.B.D.): The common bile duct measures 7.6 mm. Pancreas: Normal size of the head, body and tail of the pancreas. There is normal echogenicity of the pancreas. There is no demonstrated pancreatic mass or cyst. Right Kidney: Normal size of the right kidney. The right kidney measures 12.8 x 4.6 x 5.0 cm. Normal renal cortex. The right cortex measures 1.5 cm. There is no demonstrated solid renal mass a simple renal cyst is seen measuring 1.6 x 1.8 x 1.5 cm. There is no right hydronephrosis. US/Abdomen Limited IMPRESSION: Normal right upper quadrant ultrasound examination. Electronically Signed: Elie Hansen MD at 8:58 EDT ,
[2022-06-14 08:17] LABS: AFP, Tumor Marker 2.6 ng/mL (0.0-9.2)
== END | disposition home or self-care (01) ==
LOC: US 07:41
PROVIDERS: PCP Physician Assistant; Referring Provider Internal Medicine Gastroenterology; Visit Provider Internal Medicine Gastroenterology
DX: K74.69 Other cirrhosis of liver (principal); R93.3 Abnormal findings on diagnostic imaging of other parts of digestive tract
CPT/HCPCS: 36415; 76705; 82105

== ENCOUNTER → 2022-12-19 | Outpatient (CLI) | payer MEDICARE, OTHER, SELFPAY ==
--- NOTE | 2022-12-19 09:23 | US_ITS ---
STUDY: ABDOMINAL ULTRASOUND - RIGHT UPPER QUADRANT REASON FOR VISIT: Female, 66 years old CIRRHOSIS OF LIVER TECHNIQUE: Ultrasound evaluation of the right upper quadrant was performed with real-time and static cooper-scale imaging. TECHNICAL QUALITY: Adequate. COMPARISON: Comparison is made with prior study dated 06/13/2022. FINDINGS: Liver: The liver is enlarged and measures 21.7 cm. There is increased echogenicity consistent with fatty infiltration. The bile ducts are within normal limits. There is hepatic color flow. The direction of portal flow is hepatopetal. There is no demonstrated mass lesion. Gallbladder: The patient is status post cholecystectomy. Common Bile Duct (C.B.D.): The common bile duct measures 6.4 mm. Pancreas: Normal size of the head, body of the pancreas. The tail portion is not well visualized due to overlying bowel gas. There is normal echogenicity of the pancreas. There is no demonstrated pancreatic mass or cyst. Right Kidney: Normal size of the right kidney. The right kidney measures 12.8 cm x 5.3 cm x 5.2 cm. Normal renal cortex. The right cortex measures 1.5 cm. There is a 1.6 x 1.2 cm x 1.4 cm renal cyst. There is no right hydronephrosis. US/Abdomen Limited IMPRESSION: Hepatomegaly. Fatty infiltration of the liver. The patient is status post cholecystectomy. Electronically Signed: Ed Cristobal MD at 14:32 EST ,
== END | disposition home or self-care (01) ==
LOC: US 09:19
PROVIDERS: PCP Physician Assistant; Referring Provider Internal Medicine Gastroenterology; Visit Provider Internal Medicine Gastroenterology
DX: R93.3 Abnormal findings on diagnostic imaging of other parts of digestive tract (principal); K74.69 Other cirrhosis of liver
CPT/HCPCS: 76705

== ENCOUNTER → 2023-08-09 | Outpatient (CLI) | payer MEDICARE, OTHER, SELFPAY ==
--- NOTE | 2023-08-09 07:53 | US_ITS ---
HISTORY: CIRRHOSIS. TECHNIQUE: Zavala scale and color doppler imaging was performed of the right upper quadrant. 55 images. COMPARISON: 12/19/2022. FINDINGS: LIVER: 21 cm in length. Heterogeneous echotexture without focal lesion demonstrated. No intrahepatic ductal dilatation. No perihepatic ascites demonstrated. MAIN PORTAL VEIN: Patent with hepatopedal flow. COMMON BILE DUCT: 5 mm in diameter. GALLBLADDER: Surgically absent. PANCREAS: Visualized proximal portion unremarkable. RIGHT KIDNEY: 13.5 cm in length with a cortical thickness of 1.5 cm. No hydronephrosis. 1.7 cm cyst in the lower pole. US/Abdomen Limited IMPRESSION: Hepatomegaly with heterogeneous echotexture from steatosis or other hepatocellular disease. Cholecystectomy. Small right renal cyst. Electronically Signed: Ania Michaels MD at 11:46 EDT ,
== END | disposition home or self-care (01) ==
LOC: US 07:50
PROVIDERS: PCP Physician Assistant; Referring Provider Internal Medicine Gastroenterology; Visit Provider Internal Medicine Gastroenterology
DX: K74.60 Unspecified cirrhosis of liver (principal)
CPT/HCPCS: 76705

== ENCOUNTER → 2024-02-19 | Outpatient (CLI) | payer MEDICARE, OTHER, SELFPAY ==
--- NOTE | 2024-02-19 08:54 | US_ITS ---
INDICATION: Unspecified cirrhosis of liver EXAMINATION: Ultrasound US Abdomen Limited (quadrant) TECHNIQUE: Elizodno scale and color doppler imaging was performed of the right upper quadrant. COMPARISON: Prior study dated: 08/09/2023 FINDINGS: LIVER: Enlarged liver measuring 20.5 cm. Nodular contour consistent with cirrhosis. Heterogeneous increased echogenicity. No focal hepatic lesion. No intrahepatic biliary ductal dilatation. There is no free fluid. GALLBLADDER AND BILIARY TREE: Cholecystectomy. The proximal common bile duct measures 0.7 cm, which is within normal limits for the patient''s age. PANCREAS: No focal abnormality is demonstrated in the pancreas. No pancreatic ductal dilatation. RIGHT KIDNEY: The right kidney measures 12.6 cm. No hydronephrosis or nephrolithiasis. Simple cyst at the lower pole measures 1.6 cm. No specific follow-up recommended. US/Abdomen Limited IMPRESSION: Cirrhotic liver. No liver mass. Electronically Signed: Ellis Samuel MD at 13:19 EDT ,
== END | disposition home or self-care (01) ==
PROVIDERS: PCP Physician Assistant; Referring Provider Internal Medicine Gastroenterology; Visit Provider Internal Medicine Gastroenterology
DX: K74.60 Unspecified cirrhosis of liver (principal)
CPT/HCPCS: 76705

== ENCOUNTER → 2024-05-13 | Outpatient (CLI) | payer MEDICARE, OTHER, SELFPAY ==
--- NOTE | 2024-05-13 11:15 | ECHOCS_ITS ---
Reason For Study: CHEST PAIN Procedure This was a 2D Doppler, Color Flow transthoracic echocardiogram. The study was technically difficult. Contrast injection was performed. Exam performed in department. Left Ventricle Normal LV size. The estimated ejection fraction is 65 %. No evidence for diastolic dysfunction. No regional wall motion abnormalities noted. Right Ventricle Normal RV size. Normal systolic function. Atria Normal left atrium. Normal right atrium. No doppler evidence for ASD. Mitral Valve There is no mitral valve stenosis. No mitral valve insufficiency. Tricuspid Valve There is no tricuspid stenosis. Unable to estimate RV systolic pressure due to inadequate jet, pulmonary artery pressure probably normal. Aortic Valve Aortic sclerosis, no stenosis. There is no aortic stenosis. No aortic valve insufficiency. Pulmonic Valve There is no pulmonic valvular stenosis. Trivial pulmonic valve insufficiency. Great Vessels Normal aortic root. Pericardium/Pleural No pericardial effusion. Medication 22 gauge I.V. with prn adaptor inserted into right arm. Diluted definity 2ml given slow IV push to enhance endocardial definition. MMode/2D Measurements & Calculations LVIDd: 4.5 cm IVSd: 1.0 cm LVOT diam: 2.0 cm LVIDs: 2.8 cm LVPWd: 1.0 cm RVDd: 3.3 cm FS: 37.7 % LVOT area: 3.1 cm2 Ao root diam: 3.4 cm LAV(MOD-bp): 44.4 ml LVAd ap4: 28.7 cm2 LAV(MOD-bp) Indexed: 19.7 ml/m2 LVLd ap4: 7.5 cm LAV(MOD-sp2): 48.9 ml EDV(MOD-sp4): 88.9 ml LAV(MOD-sp4): 38.7 ml EDV(sp4-el): 93.6 ml LVAs ap4: 15.5 cm2 LVLs ap4: 6.5 cm ESV(MOD-sp4): 30.6 ml ESV(sp4-el): 31.6 ml EF(MOD-sp4): 65.6 % EF(sp4-el): 66.2 % LVAd ap2: 28.6 cm2 SV(MOD-sp4): 58.3 ml SV(MOD-sp2): 47.8 ml LVLd ap2: 7.5 cm EDV(MOD-sp2): 85.0 ml EDV(sp2-el): 91.8 ml LVAs ap2: 16.8 cm2 LVLs ap2: 6.4 cm ESV(MOD-sp2): 37.2 ml ESV(sp2-el): 37.5 ml EF(MOD-sp2): 56.3 % SV(sp4-el): 62.0 ml LA dimension(2D): 3.4 cm LA A4 area: 16.0 cm2 RA A4 area: 11.6 cm2 TAPSE: 2.1 cm Time Measurements MV dec time: 0.28 sec Doppler Measurements & Calculations MV E max yang: 63.2 cm/sec Lat Peak E' Yang: 9.8 cm/sec Med Peak E' Yang: 6.5 cm/sec MV A max yang: 98.9 cm/sec E/E' lat: 6.5 E/E' med: 9.7 MV E/A: 0.64 Ao V2 max: 163.7 cm/sec LV V1 max: 99.4 cm/sec MV dec slope: 223.6 cm/sec2 Ao max P.7 mmHg LV V1 max P.0 mmHg Ao V2 mean: 113.4 cm/sec LV V1 mean P.2 mmHg Ao mean P.9 mmHg LV V1 mean: 70.8 cm/sec Ao V2 VTI: 39.5 cm LV V1 VTI: 19.6 cm AV (velocity ratio): 0.50 ONDINA(I,D): 1.5 cm2 ONDINA(V,D): 1.9 cm2 SV(LVOT): 61.1 ml PA V2 max: 101.5 cm/sec PI end-d yang: 123.2 cm/sec PA max PG (full): 2.3 mmHg ECHO/Echo Complete W/ Contrast Interpretation Summary The estimated ejection fraction is 65 %. No evidence for diastolic dysfunction. Aortic sclerosis, no stenosis. Ordering Physician: Delia Garsia Referring Physician: Delia Garsia Performed By: Yi Gutierrez RDCS
== END | disposition home or self-care (01) ==
LOC: CVS 11:03
PROVIDERS: PCP Physician Assistant; Referring Provider Physician Assistant Medical; Visit Provider Physician Assistant Medical
DX: R07.9 Chest pain, unspecified (principal); R01.1 Cardiac murmur, unspecified
CPT/HCPCS: 93306; Q9957; A4216; C8929

== ENCOUNTER → 2024-08-08 | Outpatient (CLI) | payer MEDICARE, OTHER, SELFPAY ==
--- NOTE | 2024-08-08 08:13 | US_ITS ---
STUDY: ABDOMINAL ULTRASOUND - RIGHT UPPER QUADRANT REASON FOR VISIT: Female, 68 years old CIRRHOSIS TECHNIQUE: Ultrasound evaluation of the right upper quadrant was performed with real-time and static cooper-scale imaging. TECHNICAL QUALITY: Adequate. COMPARISON: Comparison is made with prior study dated February 19, 2024. FINDINGS: Liver: The liver is enlarged and measures 18.4 cm. There is increased echogenicity consistent with fatty infiltration. The bile ducts are within normal limits. There is hepatic color flow. The direction of portal flow is hepatopetal. There is no demonstrated mass lesion. Gallbladder: The patient is status post cholecystectomy. Common Bile Duct (C.B.D.): The common bile duct measures 4.5 mm. Pancreas: Normal size of the head, body and tail of the pancreas. There is normal echogenicity of the pancreas. There is no demonstrated pancreatic mass or cyst. Right Kidney: Normal size of the right kidney. The right kidney measures 12 cm x 5 cm x 5 cm. Normal renal cortex. The right cortex measures 1.2 cm. There is no demonstrated renal mass or cyst. There is no right hydronephrosis. US/Liver IMPRESSION: Mild hepatomegaly and fatty infiltration of the liver. Electronically Signed: Ed Cristobal MD at 14:14 EDT ,
[2024-08-08 08:48] LABS: International Normalized Ratio 1.1
[2024-08-09 08:19] LABS: AFP, Tumor Marker 2.7 ng/mL (0.0-9.2)
== END | disposition home or self-care (01) ==
PROVIDERS: PCP Physician Assistant; Referring Provider Internal Medicine; Visit Provider Internal Medicine Gastroenterology
DX: K74.60 Unspecified cirrhosis of liver (principal)
CPT/HCPCS: 36415; 76705; 82105; 85610

== ENCOUNTER → 2025-04-09 | Outpatient (CLI) | payer MEDICARE, OTHER, SELFPAY ==
--- NOTE | 2025-04-09 10:44 | US_ITS ---
PROCEDURE: ABDOMEN LIMITED 04/09/2025 REASON FOR EXAM: CIRRHOSIS/FATTY LIVER COMPARISON: Prior study dated August 08, 2024. FINDINGS: Liver: Diffusely echogenic suggesting fatty infiltration. Mild hepatomegaly. Liver measures 17.9 cm. Gallbladder: Surgically absent. Common bile duct: Normal measuring 3.3 mm . Pancreas: Normal Other: Right kidney is unremarkable. US/Abdomen Limited IMPRESSION: Mild hepatomegaly and diffuse fatty infiltration of the liver. Status post cholecystectomy. Reading Location: [place] [id number]
== END | disposition home or self-care (01) ==
LOC: US 10:42
PROVIDERS: PCP Physician Assistant; Referring Provider Internal Medicine; Visit Provider Internal Medicine
DX: K74.60 Unspecified cirrhosis of liver (principal); K76.0 Fatty (change of) liver, not elsewhere classified
CPT/HCPCS: 76705